=== PATIENT | female | born 1970 | race Caucasian/White ===

== ENCOUNTER 2017-04-10 00:37 | Inpatient (IN) | payer OTHER ==
[2017-04-10] VITALS (7 sets, daily range): BP systolic 124–142; BP diastolic 58–79; PULSE 58–68; RESP 20; TEMP 97.4–98; O2SAT 97–100
[~2017-04-10 00:37] MED LIST: FOLI1TAB6 PO; MELO-1 PO; TAB-TAB PO; vitamin b12
[2017-04-10] MEDS ORDERED: DEXT 5%-NACL 0.9% 1000 ML INJ 1,000 ML IV SCH (02:45)
[2017-04-10] MEDS ORDERED: ONDANSETRON HCL 4 MG/2 ML VIAL IV PUSH PRN (03:00)
[2017-04-10] MEDS: HYDROmorphone HCL PF 1 MG/ML VIAL IV PUSH PRN ×2 (03:51→09:36)
[2017-04-10] MEDS ORDERED: SODIUM CHLOR 0.9% 1000 ML INJ 1,000 ML IV SCH (09:41)
[2017-04-10] MEDS ORDERED: SODIUM CHLORIDE 0.9% FLUSH 10 ML FLUSH IV FLUSH PRN (09:45)
[2017-04-10] MEDS ORDERED: NALOXONE HCL 0.4 MG/ML AMP IV PUSH PRN (09:45)
--- NOTE | 2017-04-10 10:51 | HHI.HP ---
HPI Service [facility] Hospitalists Primary Care Physician Non-Staff Admission Diagnosis pancreatitis Chief Complaint: abdominal pain Travel History International Travel<30 Days: No Contact w/Intl Traveler <30 Da: No Traveled to Known Affected Are: No History of Present Illness This is a pleasant 47-year-old female patient with past medical history which includes obesity status post gastric bypass 2015, diabetes mellitus which is resolved post weight loss, hypertension no longer on medication, PCOS and vitamin D deficiency. Patient reports she typically will have 1-2 glasses of wine over the weekend. On Sunday she had a vodka and cranberry as well as glass of wine. On Sunday patient had nonblack non-bloody diarrhea. Patient awoke Sunday morning with a burning sensation in her abdomen felt this was gastric reflux then was unable to finish her breakfast due to nausea and vomiting. There were no signs of bright red blood or black coffee ground emesis. Patient reports the abdominal pain progressively got worse throughout the day and became severe sharp and stabbing. Patient was took 10 days of meloxicam 2 weeks ago. Patient reports she has not taken Meloxicam for the past 4 days. Patient presented to the emergency department and was found to have lipase of 1148 and amylase of 151. Patient was transferred to [facility] for further evaluation and treatment. At this time patient reports her abdominal pain is, "a little better," with IV Dilaudid. Nausea has resolved although patient continues to be nothing by mouth. Patient endorses positive flatus. Patient denies fevers chills shortness of breath or chest pain. Review of Systems Constitutional: DENIES: Fatigue, Fever, Chills Eyes: DENIES: Diplopia, Vision loss, Double Vision Respiratory: DENIES: Cough, Sputum production, Shortness of breath Cardiovascular: DENIES: Chest pain, Dyspnea on Exertion, Lower Extremity Edema Gastrointestinal: COMPLAINS OF: Abdominal pain, Diarrhea, Nausea (resolved), Vomiting (resolved), DENIES: Black stools, Bloody stools, BRB per rectum, Constipation Neurologic: DENIES: Abnormal gait, Localized weakness, Speech Problems Psychiatric: DENIES: Anxiety, Confusion, Depression Past Family Social History Past Medical History obesity status post gastric bypass 2015, diabetes mellitus which is resolved post weight loss, hypertension no longer on medication, PCOS and vitamin D deficiency Past Surgical History Cholecystectomy 25 years ago secondary to gallstones Gastric bypass 2016 Right carpal tunnel surgery Reported Medications [vitamin b12] Folic Acid 1 Mg Tablet 1 Mg PO DAILY Meloxicam 15 Mg Tab 15 Mg PO DAILY- no longer taking Multivitamin (Multivitamins) 1 Tab Tab 1 Tab PO DAILY Allergies: Coded Allergies: No Known Allergies (Unverified Adverse Reaction, Unknown, 04/09/17) Active Ordered Medications Current Medications Medications (Trade) Dose Ordered Sig/Krish Route Start Time Stop Time Status Last Admin Dextrose/Sodium Chloride 1,000 ml @ 100 mls/hr Q10H IV 04/10/17 02:45 04/10/17 03:11 (Zofran Inj) 4 mg Q6H PRN IV PUSH 04/10/17 03:00 (Dilaudid Pf Inj) 1 mg Q3H PRN IV PUSH 04/10/17 03:00 04/10/17 09:36 (Flu (Quadrivalent) Vaccine Inj) 0.5 ml ONCE ONCE IM 04/11/17 09:00 04/11/17 09:01 Sodium Chloride 1,000 ml @ 100 mls/hr Q10H IV 04/10/17 09:41 (NS Flush) 2 ml UNSCH PRN IV FLUSH 04/10/17 09:45 (NS Flush) 2 ml BID IV FLUSH 04/10/17 21:00 (Tylenol) 650 mg Q4H PRN PO 04/10/17 11:00 (Narcan Inj) 0.4 mg UNSCH PRN IV PUSH 04/10/17 09:45 (Flavia-Colace) 1 tab BID PO 04/10/17 21:00 (Milk Of Magnesia Liq) 30 ml Q12HR PRN PO 04/10/17 11:00 Family History Mother has asthma Father had CABG in his early 40s Social History Works as a home health nurse ETOH use socially on the weekend 1-2 glasses of wine denies tobacco use Physical Exam Vital Signs Vital Signs Date Time Temp Pulse Resp B/P (MAP) Pulse Ox O2 Delivery O2 Flow Rate FiO2 04/10/17 08:38 98.0 60 20 142/73 (96) 100 04/10/17 04:00 97.6 64 20 124/58 (80) 97 04/10/17 00:50 97.7 68 20 133/79 (97) 98 Physical Exam GENERAL: This is a well-nourished, well-developed patient, appears uncomfortable but in no acute distress SKIN: No rashes, ecchymoses or lesions. Cool and dry. HEAD: Atraumatic. Normocephalic. No temporal or scalp tenderness. EYES: Extraocular motions intact. No scleral icterus. No injection or drainage. CARDIOVASCULAR: Regular rate and rhythm RESPIRATORY: Clear to auscultation. Breath sounds equal bilaterally. GASTROINTESTINAL: Abdomen soft, nondistended. tender to light palpation mid upper abdomen MUSCULOSKELETAL: Extremities without clubbing, cyanosis, or edema. No joint tenderness, effusion, or edema noted. No calf tenderness. Negative Homans sign bilaterally. NEUROLOGICAL: Awake and alert. No focal deficits appreciated. Motor and sensory grossly within normal limits. Five out of 5 muscle strength in all muscle groups. Normal speech. Imaging CT abdomen/pelvis (04/09) reviewed and reveals mildly non-specific nonobstructive bowel gas pattern which may represent a mild ileus and/or gastroenteritis. Postoperative changes involving the stomach. Status post cholecystectomy. Mild hepatic steatosis Caprini VTE Risk Assessment Caprini VTE Risk Assessment: No/Low Risk (score <= 1) Caprini Risk Assessment Model Point Value = 1 Point Value = 2 Point Value = 3 Point Value = 5 Age 41-60 Minor surgery BMI > 25 kg/m2 Swollen legs Varicose veins or History of unexplained or recurrent spontaneous Oral contraceptives or hormone replacement Sepsis (< 1 month) Serious lung disease, including pneumonia (< 1 month) Abnormal pulmonary function Acute myocardial infarction Congestive heart failure (< 1 month) History of inflammatory bowel disease Medical patient at bed rest Age 61-74 Arthroscopic surgery Major open surgery (> 45 min) Laparoscopic surgery (> 45 min) Malignancy Confined to bed (> 72 hours) Immobilizing plaster cast Central venous access Age >= 75 History of VTE Family history of VTE Factor V Leiden Prothrombin [id number] Lupus anticoagulant Anticardiolipin antibodies Elevated serum homocysteine Heparin-induced thrombocytopenia Other congenital or acquired thrombophilia Stroke (< 1 month) Elective arthroplasty Hip, pelvis, or leg fracture Acute spinal cord injury (< 1 month) Prophylaxis Regimen Total Risk Factor Score Risk Level Prophylaxis Regimen 0-1 Low Early ambulation 2 Moderate Order ONE of the following: *Sequential Compression Device (SCD) *Heparin 5000 units SQ BID 3-4 Higher Order ONE of the following medications: *Heparin 5000 units SQ TID *Enoxaparin/Lovenox 40 mg SQ daily (WT < 150 kg, CrCl > 30 mL/min) *Enoxaparin/Lovenox 30 mg SQ daily (WT < 150 kg, CrCl > 10-29 mL/min) *Enoxaparin/Lovenox 30 mg SQ BID (WT < 150 kg, CrCl > 30 mL/min) AND/OR *Sequential Compression Device (SCD) 5 or more Highest Order ONE of the following medications: *Heparin 5000 units SQ TID (Preferred with Epidurals) *Enoxaparin/Lovenox 40 mg SQ daily (WT < 150 kg, CrCl > 30 mL/min) *Enoxaparin/Lovenox 30 mg SQ daily (WT < 150 kg, CrCl > 10-29 mL/min) *Enoxaparin/Lovenox 30 mg SQ BID (WT < 150 kg, CrCl > 30 mL/min) AND *Sequential Compression Device (SCD) Assessment and Plan Problem List: (1) Acute pancreatitis ICD Codes: K85.90 - Acute pancreatitis without necrosis or infection, unspecified Status: Acute Plan: Acute pancreatitis Patient reports she typically will have 1-2 glasses of wine over the weekend. On Sunday she had a vodka and cranberry as well as glass of wine. Abdominal pain progressively got worse throughout the day and became severe sharp and stabbing CT abdominal/pelvic reviewed and reveals: mild nonobstructing bowel gas pattern which may represent a mild ileus and/or gastroenteritis. Post operative changes involving the stomach. S/P cholecystectomy. Mild hepatic steatosis. Lipase of 1148 and amylase of 151 IV Dilaudid as needed for pain Nothing by mouth- bowel rest NS at 125 ml/h repeat CBC, CMP, amylase and lipase Protonix 40 mg IV daily DVT prophylaxis with SCDs Assessment and Plan Patient examined. Assessment and plan formulated with Katiuska Prieto PA-C. I agree with the above. acute pancreatitis. most likely etoh related. was on nsaids. no evidence for gib. if no improvement will consider ulcer and egd eval with GI. cont ivf. iv pain meds. npo today. Katiuska Prieto Apr 10, 2017 10:51 Sergei Bailon MD Apr 10, 2017 10:55
[2017-04-10] MEDS ORDERED: MAGNESIUM HYDROXIDE SUSP 30 ML CUP PO PRN (11:00)
[2017-04-10] MEDS ORDERED: ACETAMINOPHEN 325 MG TAB PO PRN (11:00)
[2017-04-10] MEDS: PANTOPRAZOLE SODIUM 40 MG VIAL IV PUSH SCH (11:40)
[2017-04-10 12:40] LABS: HEMATOCRIT 34.5 % (35.0-46.0); MEAN CORPUSCULAR HEMOGLOBIN 28.3 PG (27.0-34.0); MEAN CORPUSCULAR HGB CONC 33.6 % (32.0-36.0); PLATELET COUNT 189 TH/MM3 (150-450); RED CELL DISTRIBUTION WIDTH 13.8 % (11.6-17.2); REVIEW FLAG FINAL
[2017-04-10 13:02] LABS: AMYLASE 48 U/L (25-115)
[2017-04-10 13:06] LABS: ANION GAP 8 MEQ/L (5-15); AST (GOT) 18 U/L (15-37); BICARBONATE 26.9 MEQ/L (21.0-32.0); BLOOD UREA NITROGEN 14 MG/DL (7-18); CHLORIDE 107 MEQ/L (98-107); GLOMERULAR FILTRATION RATE 157 ML/MIN (>89); POTASSIUM 3.2 MEQ/L (3.5-5.1); SODIUM (NA) 142 MEQ/L (136-145)
[2017-04-10 13:09] LABS: ALKALINE PHOSPHATASE 98 U/L (45-117); ALT (GPT) 20 U/L (10-53); TOTAL BILIRUBIN ADULT 0.3 MG/DL (0.2-1.0)
[2017-04-10] MEDS ORDERED: POTASSIUM CHLOR 20 MEQ PREMIX 100 ML IV ONE (15:00)
[2017-04-10] MEDS: NS + KCL 20 MEQ INJ 1,000 ML IV SCH (17:58)
[2017-04-10] MEDS ORDERED: DOCUSATE SODIUM 50 MG/SENNA 8.6 MG TAB PO SCH (21:00)
[2017-04-10] MEDS: SODIUM CHLORIDE 0.9% FLUSH 10 ML FLUSH IV FLUSH SCH (21:58)
[2017-04-11] VITALS (7 sets, daily range): BP systolic 128–144; BP diastolic 69–80; PULSE 60–78; RESP 17–20; TEMP 97.6–98.3; O2SAT 97–100
[2017-04-11] MEDS: NS + KCL 20 MEQ INJ 1,000 ML IV SCH ×4 (04:25→23:54)
[2017-04-11] MEDS ORDERED: INFLUENZA VIRUS VACCINE (QUADRIVALENT) 0.5 ML SYR IM ONE (09:00)
[2017-04-11] MEDS: SODIUM CHLORIDE 0.9% FLUSH 10 ML FLUSH IV FLUSH SCH ×2 (09:00→21:00)
--- NOTE | 2017-04-11 09:01 | HHI.PR ---
Subjective Remarks Pt reports that her upper abd pain is much improved Still with some tenderness with palpation Tolerating clear liquids No nausea/vomiting. Objective Vitals Vital Signs Date Time Temp Pulse Resp B/P (MAP) Pulse Ox O2 Delivery O2 Flow Rate FiO2 04/11/17 08:25 98.3 71 18 128/74 (92) 99 04/11/17 04:44 97.7 75 20 135/69 (91) 98 04/11/17 00:14 97.6 78 20 128/71 (90) 97 04/10/17 21:04 97.7 65 20 133/61 (85) 98 04/10/17 16:25 97.9 58 20 134/63 (86) 100 04/10/17 14:00 98 21 04/10/17 12:00 97.4 61 20 135/61 (85) 99 04/11/17 04/11/17 04/12/17 15:00 23:00 07:00 Intake Total 486 ml Balance 486 ml Intake IV Total 486 ml Result Diagram: 04/10/17 1155 04/10/17 1155 Other Results Laboratory Tests Test 04/10/17 11:55 White Blood Count 8.0 TH/MM3 Red Blood Count 4.10 MIL/MM3 Hemoglobin 11.6 GM/DL Hematocrit 34.5 % Mean Corpuscular Volume 84.0 FL Mean Corpuscular Hemoglobin 28.3 PG Mean Corpuscular Hemoglobin Concent 33.6 % Red Cell Distribution Width 13.8 % Platelet Count 189 TH/MM3 Mean Platelet Volume 9.3 FL Blood Urea Nitrogen 14 MG/DL Creatinine 0.43 MG/DL Random Glucose 100 MG/DL Total Protein 6.4 GM/DL Albumin 3.1 GM/DL Calcium Level 8.2 MG/DL Alkaline Phosphatase 98 U/L Aspartate Amino Transf (AST/SGOT) 18 U/L Alanine Aminotransferase (ALT/SGPT) 20 U/L Total Bilirubin 0.3 MG/DL Sodium Level 142 MEQ/L Potassium Level 3.2 MEQ/L Chloride Level 107 MEQ/L Carbon Dioxide Level 26.9 MEQ/L Anion Gap 8 MEQ/L Estimat Glomerular Filtration Rate 157 ML/MIN Amylase Level 48 U/L Lipase 116 U/L Imaging CT abdomen/pelvis (04/09) reviewed and reveals mildly non-specific nonobstructive bowel gas pattern which may represent a mild ileus and/or gastroenteritis. Postoperative changes involving the stomach. Status post cholecystectomy. Mild hepatic steatosis Objective Remarks General: NAD, AAOx3 Chest: CTA Cardiac: Regular Abd: +BS, soft ND, minimal epigastric tenderness with palpation Ext: No edema A/P Problem List: (1) Acute pancreatitis ICD Codes: K85.90 - Acute pancreatitis without necrosis or infection, unspecified Status: Acute Plan: - Patient reports she typically will have 1-2 glasses of wine over the weekend. On Sunday she had a vodka and cranberry as well as glass of wine. Abdominal pain progressively got worse throughout the day and became severe sharp and stabbing - CT abdominal/pelvis (04/10) --> mild nonobstructing bowel gas pattern which may represent a mild ileus and/or gastroenteritis. Post operative changes involving the stomach. S/P cholecystectomy. Mild hepatic steatosis. - Lipase of 1148 and amylase of 151 on the day of admission, this improved to Lipase 116, Amylase 48 on 04/10 - Await KUB - Repeat BMP and triglycerides this morning. - NS at 125 ml/h - Protonix 40 mg IV daily - Pt is on clear liquid diet, advance to full liquids for lunch and soft diet for dinner if tolerating, anticipate d/c to home this evening. - DVT prophylaxis with SCDs Assessment and Plan Patient examined. Assessment and plan formulated with Leslie Lees PA-C. I agree with the above. acute pancreatitis. etoh related. no evidence for ugib. stop nsaids.ppi. if tolerating advancement of diet then d/c home later today. Leslie Lees Apr 11, 2017 09:01 Sergei Bailon MD Apr 11, 2017 10:59
--- NOTE | 2017-04-11 09:48 | RADRPT ---
EXAM DATE/TIME: 04/11/2017 08:35 [place] COMPARISON: CT ABDOMEN & PELVIS W CONTRAST, April 09, 2017, 21:01. INDICATIONS : Rule out ileus. Abdominal pain since Sunday. MEDICAL HISTORY : Polycystic ovaries SURGICAL HISTORY : Cholecystectomy. Gastric bypass. ENCOUNTER: Subsequent ACUITY: 2 days PAIN SCORE: 4/10 LOCATION: Bilateral Abdomen FINDINGS: Surgical clips gallbladder fossa and right renal fossa. Minimal gas-filled loops of large and small bowel without significant dilatation. Solid stool in the rectum. CONCLUSION: Scattered solid stool, negative for obstruction or free air. Heber Harden MD FACR on April 11, 2017 at 9:45 Board Certified Radiologist. This report was verified electronically.
[2017-04-11] MEDS ORDERED: PANT40TA3 PO (10:12)
--- NOTE | 2017-04-11 11:01 | HHI.DCPOC ---
Discharge Care Plan Diagnosis: (1) Acute pancreatitis Goals to Promote Your Health * To prevent worsening of your condition and complications * To maintain your health at the optimal level Directions to Meet Your Goals Take your medications as prescribed Follow your dietary instruction Follow activity as directed Keep your appointments as scheduled Take your immunizations and boosters as scheduled If your symptoms worsen call your PCP, if no PCP go to Urgent Care Center or Emergency Room Smoking is Dangerous to Your Health. Avoid second hand smoke Call the 24-hour hour crisis hotline for domestic abuse at Leslie Lees Apr 11, 2017 11:01
[2017-04-11 11:45] LABS: AUTOMATED NEUTROPHIL # 3.5 TH/MM3 (1.8-7.7); BASOPHIL % 0.4 % (0.0-2.0); EOSINOPHIL # 0.1 TH/MM3 (0-0.4); EOSINOPHIL % 1.4 % (0.0-4.0); HEMATOCRIT 36.6 % (35.0-46.0); HEMO FLAGS DIFF FINAL; LYMPH % 31.1 % (9.0-44.0); LYMPHOCYTE # 1.9 TH/MM3 (1.0-4.8); MEAN CELL VOLUME 85.5 FL (80.0-100.0); MEAN CORPUSCULAR HEMOGLOBIN 28.5 PG (27.0-34.0); MEAN CORPUSCULAR HGB CONC 33.3 % (32.0-36.0); NEUT % 58.1 % (16.0-70.0); PLATELET COUNT 199 TH/MM3 (150-450); RED BLOOD COUNT 4.29 MIL/MM3 (4.00-5.30); RED CELL DISTRIBUTION WIDTH 13.6 % (11.6-17.2); WHITE BLOOD COUNT 6.1 TH/MM3 (4.0-11.0)
[2017-04-11 12:02] LABS: ANION GAP 7 MEQ/L (5-15); AST (GOT) 19 U/L (15-37); BICARBONATE 25.8 MEQ/L (21.0-32.0); BLOOD UREA NITROGEN 9 MG/DL (7-18); CHLORIDE 110 MEQ/L (98-107); GLOMERULAR FILTRATION RATE 171 ML/MIN (>89); POTASSIUM 3.6 MEQ/L (3.5-5.1); SODIUM (NA) 143 MEQ/L (136-145)
[2017-04-11 12:03] LABS: ALT (GPT) 21 U/L (10-53)
[2017-04-11] MEDS: PANTOPRAZOLE SODIUM 40 MG VIAL IV PUSH SCH (12:04)
[2017-04-11 12:06] LABS: ALKALINE PHOSPHATASE 96 U/L (45-117); TOTAL BILIRUBIN ADULT 0.3 MG/DL (0.2-1.0)
[2017-04-12 01:00] VITALS: BP 132/73; PULSE 67; RESP 16; TEMP 98; O2SAT 97
[2017-04-12 05:28] VITALS: BP 136/72; PULSE 61; RESP 16; TEMP 98; O2SAT 97
[2017-04-12] MEDS: NS + KCL 20 MEQ INJ 1,000 ML IV SCH (08:00)
[2017-04-12] MEDS: SODIUM CHLORIDE 0.9% FLUSH 10 ML FLUSH IV FLUSH SCH (08:13)
[2017-04-12 08:27] VITALS: BP 128/74; PULSE 73; RESP 18; TEMP 98.3; O2SAT 98
--- NOTE | 2017-04-12 08:46 | HHI.PR ---
Subjective Remarks had alot of abdomen cramping and diarrhea after full liquid yesterday feels much better today. Objective Vitals heart reg lung cta abd s/nt/bs ext no edema Vital Signs Date Time Temp Pulse Resp B/P (MAP) Pulse Ox O2 Delivery O2 Flow Rate FiO2 04/12/17 08:27 98.3 73 18 128/74 (92) 98 04/12/17 05:28 98.0 61 16 136/72 (93) 97 04/12/17 01:00 98.0 67 16 132/73 (92) 97 04/11/17 21:50 97.7 60 17 132/77 (95) 99 04/11/17 17:08 98.2 68 18 144/80 (101) 99 04/11/17 16:36 100 04/11/17 12:32 98.3 60 17 142/74 (96) 100 04/12/17 04/12/17 04/13/17 15:00 23:00 07:00 Intake Total 1000 ml Balance 1000 ml IV Total 1000 ml Result Diagram: 04/11/1782404/11/[address] abdomen/pelvis (04/09) reviewed and reveals mildly non-specific nonobstructive bowel gas pattern which may represent a mild ileus and/or gastroenteritis. Postoperative changes involving the stomach. Status post cholecystectomy. Mild hepatic steatosis A/P Problem List: (1) Acute pancreatitis ICD Codes: K85.90 - Acute pancreatitis without necrosis or infection, unspecified Status: Acute Plan: - Patient reports she typically will have 1-2 glasses of wine over the weekend. On Sunday she had a vodka and cranberry as well as glass of wine. Abdominal pain progressively got worse throughout the day and became severe sharp and stabbing - CT abdominal/pelvis (04/10) --> mild nonobstructing bowel gas pattern which may represent a mild ileus and/or gastroenteritis. Post operative changes involving the stomach. S/P cholecystectomy. Mild hepatic steatosis. - Lipase of 1148 and amylase of 151 on the day of admission, this improved to Lipase 116, Amylase 48 on 04/10 abdomen pain resoled today. advance diet and d/c home later today if tolerating d/c ivf Sergei Bailon MD Apr 12, 2017 08:46
[2017-04-12] MEDS: PANTOPRAZOLE SODIUM 40 MG VIAL IV PUSH SCH (11:04)
[2017-04-12 12:21] VITALS: BP 146/72; PULSE 75; RESP 18; TEMP 98.1; O2SAT 98
[2017-04-12 14:49] LABS: BICARBONATE 30.1 MEQ/L (21.0-32.0); POTASSIUM 3.9 MEQ/L (3.5-5.1)
== END 2017-04-12 18:10 | disposition home or self-care (01) | DRG 440 ==
LOC: NEDDLT 00:37 → N05B 00:47
PROVIDERS: ADMIT Hospitalist; ATTEND Hospitalist
DX: K85.90 Acute pancreatitis without necrosis or infection, unspecified (principal); K76.0 Fatty (change of) liver, not elsewhere classified; E55.9 Vitamin D deficiency, unspecified; Z98.84 Bariatric surgery status; Z82.49 Family history of ischemic heart disease and other diseases of the circulatory system; Z82.5 Family history of asthma and other chronic lower respiratory diseases; Z90.49 Acquired absence of other specified parts of digestive tract
CPT/HCPCS: 74000; 74177; 80048; 80053; 81001; 82150; 83690; 84478; 84702; 85025; 85027; C9113; J1170; J2405; J3480; J7030; J7042; Q9967